=== PATIENT | male | born 1960 | race Caucasian/White ===

== ENCOUNTER 2016-08-11 16:14 | Emergency (ER) | payer MEDICAID ==
[~2016-08-11] VITALS: Ht 180.3 cm; Wt 70.3 kg
[2016-08-11 16:25] VITALS: BP 145/91
== END 2016-08-12 03:39 | disposition left against medical advice (07) ==
LOC: ER 16:18
DX: L02.11 Cutaneous abscess of neck (principal); Z53.21 Procedure and treatment not carried out due to patient leaving prior to being seen by health care provider

== ENCOUNTER 2016-08-14 19:22 | Inpatient (IN) | payer MEDICAID ==
[~2016-08-14] VITALS: Ht 180.3 cm; Wt 79.0 kg
[2016-08-14 21:25] LABS: Basophils # (auto) 0 uL; Basophils % (auto) 0.5 % (0.0-2.0); Eosinophils # (auto) 0.1 uL; Eosinophils % (auto) 1.3 % (0.0-7.0); Hematocrit 42.2 % (41.0-53.0); Hemoglobin 14.1 g/dL (13.5-17.5); Lymphocytes # (auto) 1.7 uL; Lymphocytes % (auto) 16.9 % (10.0-50.0); Mean Corpuscular Hemoglobin 30.2 pg (28.0-32.0); Mean Corpuscular Hgb Conc. 33.5 g/dL (32.0-36.0); Mean Corpuscular Volume 90.2 fL (80.0-100.0); Monocytes # (auto) 0.9 uL; Monocytes % (auto) 8.5 % (0.0-12.0); Neutrophils # (auto) 7.5 uL; Neutrophils % (auto) 72.8 % (37.0-80.0); Platelet Count (auto) 291 10^3/uL (140-450); Red Cell Distribution Width 13.5 % (11.6-16.0); White Blood Cell 10.3 10^3/uL (4.4-10.8)
[2016-08-14 21:51] LABS: BUN/Creatinine Ratio 14.1; Bilirubin, Total 0.3 mg/dL (0.2-1.0); Calcium 8.5 mg/dL (8.5-10.1); Potassium 3.8 mmol/L (3.5-5.1); Total Protein 7.3 g/dL (6.4-8.2)
[2016-08-15] MEDS ORDERED: SODIUM CHLORIDE 0.9% 1,000 ML IV ONE (06:29)
[2016-08-15] MEDS ORDERED: SULFAMETH-TRIMETH 80/16MG-ML 15 ML in D5W 5% 500 ML IV ONE (06:30)
[2016-08-15] MEDS ORDERED: IOHEXOL 300 MG/ML 100ML BOTTLE IJ ONE (08:01)
[2016-08-15] MEDS ORDERED: LACTULOSE 20Gm/30ML SOLN PO PRN (08:45)
[2016-08-15] MEDS ORDERED: LORazepam 0.5 MG TAB PO PRN (08:45)
[2016-08-15] MEDS ORDERED: TEMAZEPAM 15 MG CAP PO PRN (08:45)
[2016-08-15] MEDS ORDERED: PROMETHAZINE HCL 25 MG/ML 1ML IV PRN (08:45)
[2016-08-15] MEDS ORDERED: THIAMINE HCL 100 MG/ML 2ML VIAL IV ONE (08:45)
[2016-08-15] MEDS ORDERED: ACETAMINOPHEN 500 MG TAB PO PRN (08:45)
[2016-08-15] MEDS ORDERED: VANCOMYCIN 1GM/250ML D5W 250 ML IV ONE (08:45)
[2016-08-15] MEDS ORDERED: PIPERACILLIN-TAZOB 3.375GM 100 ML IV ONE (08:45)
[2016-08-15] MEDS ORDERED: VANCOMYCIN PER PHARMACY 0 MG IV SCH (08:45)
[2016-08-15 10:04] LABS: Urine Bilirubin Negative (Negative); Urine Blood Negative /uL (Negative); Urine Ca Oxalate Crystal FEW (None Seen); Urine Color Yellow (Yellow); Urine Glucose Normal (Normal); Urine Ketone Negative (Negative); Urine Mucus FEW (None Seen); Urine Nitrite Negative (Negative); Urine RBC 1 /hpf (0 - 3); Urine Squamous Epithelial Cell FEW /hpf (<5); Urine pH 5.5 (5.0-8.0)
[2016-08-15] MEDS: MORPHINE SULF INJ 2 MG/ML SYRINGE 1ML IV PRN ×2 (10:47→19:52)
[2016-08-15] MEDS: ENOXAPARIN SOD 40 MG/0.4 ML SYRINGE SC SCH (11:04)
[2016-08-15] MEDS: SODIUM CHLORIDE 0.9% 1,000 ML IV SCH ×2 (11:11→18:15)
[2016-08-15] MEDS: chlordiazePOXIDE HCL 5 MG CAP PO SCH ×3 (12:38→23:20)
[2016-08-15 12:50] VITALS: BP 117/78
[2016-08-15 12:52] VITALS: BP 130/90
[2016-08-15] MEDS: THIAMINE HCL 100 MG/ML 2ML VIAL IV SCH (13:31)
[2016-08-15 14:33] LABS: INR 0.97 (0.9-1.15); Partial Thromboplastin Time 31.2 sec (22.64-33.71); Prothrombin Time 10.6 sec (9.37-12.3)
[2016-08-15] MEDS: PIPERACILLIN-TAZOB 3.375GM 100 ML IV SCH ×3 (14:39→23:21)
[2016-08-15 16:51] VITALS: BP 125/85
[2016-08-15 20:00] VITALS: BP 131/83
[2016-08-15 21:43] VITALS: BP 131/83
[2016-08-15] MEDS: VANCOMYCIN 1GM/250ML D5W 250 ML IV SCH (22:05)
[2016-08-16 05:00] VITALS: BP 122/75
[2016-08-16 06:10] LABS: Basophils # (auto) 0 uL; Basophils % (auto) 0.7 % (0.0-2.0); Eosinophils # (auto) 0.2 uL; Eosinophils % (auto) 2.4 % (0.0-7.0); Hematocrit 38.7 % (41.0-53.0); Lymphocytes # (auto) 1.4 uL; Lymphocytes % (auto) 19.2 % (10.0-50.0); Mean Corpuscular Hgb Conc. 33.6 g/dL (32.0-36.0); Mean Corpuscular Volume 89.3 fL (80.0-100.0); Mean Platelet Volume 8.9 fL (7.4-10.4); Monocytes # (auto) 0.8 uL; Monocytes % (auto) 11.7 % (0.0-12.0); Neutrophils # (auto) 4.7 uL; Platelet Count (auto) 287 10^3/uL (140-450); Red Cell Distribution Width 13.7 % (11.6-16.0); White Blood Cell 7.1 10^3/uL (4.4-10.8)
[2016-08-16] MEDS: PIPERACILLIN-TAZOB 3.375GM 100 ML IV SCH ×2 (06:19→12:15)
[2016-08-16] MEDS: chlordiazePOXIDE HCL 5 MG CAP PO SCH ×3 (06:20→17:08)
[2016-08-16] MEDS: SODIUM CHLORIDE 0.9% 1,000 ML IV SCH ×3 (06:20→15:30)
[2016-08-16 06:43] LABS: Albumin 2.6 g/dL (3.4-5.0); BUN/Creatinine Ratio 14.9; Bilirubin, Total 0.3 mg/dL (0.2-1.0); Calcium 8.4 mg/dL (8.5-10.1); Total Protein 6.6 g/dL (6.4-8.2)
[2016-08-16 07:00] VITALS: BP 104/58
[2016-08-16] MEDS: MORPHINE SULF INJ 2 MG/ML SYRINGE 1ML IV PRN (07:09)
[2016-08-16] MEDS: ENOXAPARIN SOD 40 MG/0.4 ML SYRINGE SC SCH (09:02)
[2016-08-16] MEDS: THIAMINE HCL 100 MG/ML 2ML VIAL IV SCH (09:02)
[2016-08-16] MEDS: VANCOMYCIN 1GM/250ML D5W 250 ML IV SCH ×3 (10:02→22:46)
[2016-08-16 13:00] VITALS: BP 132/76
[2016-08-16] MEDS: cefTRIAXone 1GM/50ML D5W 50 ML IV SCH (15:29)
[2016-08-16 17:07] VITALS: BP 148/75
[2016-08-16 22:00] VITALS: BP 142/89
[2016-08-17] MEDS: chlordiazePOXIDE HCL 5 MG CAP PO SCH ×4 (01:33→17:34)
[2016-08-17] MEDS: MORPHINE SULF INJ 2 MG/ML SYRINGE 1ML IV PRN (02:31)
[2016-08-17 05:00] VITALS: BP 120/71
[2016-08-17 09:00] VITALS: BP 152/92
[2016-08-17] MEDS: THIAMINE HCL 100 MG/ML 2ML VIAL IV SCH (09:59)
[2016-08-17] MEDS: cefTRIAXone 1GM/50ML D5W 50 ML IV SCH (10:06)
[2016-08-17] MEDS: SODIUM CHLORIDE 0.9% 1,000 ML IV SCH ×2 (10:40→22:06)
[2016-08-17] MEDS: VANCOMYCIN 1GM/250ML D5W 250 ML IV SCH ×2 (10:40→21:10)
[2016-08-17 13:00] VITALS: BP 141/85
[2016-08-17] MEDS: MULTIPLE VITAMIN TAB PO SCH (16:15)
[2016-08-17 17:00] VITALS: BP 140/80
[2016-08-17] MEDS: PRO-STAT 64 30ML PO SCH (17:33)
[2016-08-17] MEDS: ASCORBIC ACID 500 MG TAB PO SCH (21:10)
[2016-08-17] MEDS: LINEZOLID 600MG TABLET PO SCH (21:10)
[2016-08-17 22:00] VITALS: BP 133/87
[2016-08-18] VITALS (7 sets, daily range): BP systolic 112–131; BP diastolic 67–85
[2016-08-18] MEDS: chlordiazePOXIDE HCL 5 MG CAP PO SCH ×5 (05:31→23:39)
[2016-08-18 06:35] LABS: Basophils # (auto) 0 uL; Basophils % (auto) 0.6 % (0.0-2.0); Eosinophils # (auto) 0.2 uL; Hematocrit 36.3 % (41.0-53.0); Hemoglobin 12.4 g/dL (13.5-17.5); Lymphocytes # (auto) 1.6 uL; Lymphocytes % (auto) 23.6 % (10.0-50.0); Mean Corpuscular Hemoglobin 30.2 pg (28.0-32.0); Mean Corpuscular Hgb Conc. 34.2 g/dL (32.0-36.0); Mean Corpuscular Volume 88.5 fL (80.0-100.0); Mean Platelet Volume 9.3 fL (7.4-10.4); Monocytes # (auto) 0.7 uL; Monocytes % (auto) 10.4 % (0.0-12.0); Neutrophils # (auto) 4.2 uL; Neutrophils % (auto) 62.4 % (37.0-80.0); Platelet Count (auto) 311 10^3/uL (140-450); Red Cell Distribution Width 13.6 % (11.6-16.0); White Blood Cell 6.8 10^3/uL (4.4-10.8)
[2016-08-18 06:53] LABS: BUN/Creatinine Ratio 22.2; Potassium 4.3 mmol/L (3.5-5.1)
[2016-08-18] MEDS: SODIUM CHLORIDE 0.9% 1,000 ML IV SCH ×2 (07:33→16:55)
[2016-08-18] MEDS: PRO-STAT 64 30ML PO SCH ×2 (08:00→17:43)
[2016-08-18] MEDS: ASCORBIC ACID 500 MG TAB PO SCH ×2 (09:05→22:07)
[2016-08-18] MEDS: THIAMINE HCL 100 MG/ML 2ML VIAL IV SCH (09:05)
[2016-08-18] MEDS: VANCOMYCIN 1GM/250ML D5W 250 ML IV SCH (09:05)
[2016-08-18] MEDS: cefTRIAXone 1GM/50ML D5W 50 ML IV SCH (09:05)
[2016-08-18] MEDS: MULTIPLE VITAMIN TAB PO SCH (09:05)
[2016-08-18] MEDS: LINEZOLID 600MG TABLET PO SCH ×2 (09:06→22:07)
[2016-08-18] MEDS: MORPHINE SULF INJ 2 MG/ML SYRINGE 1ML IV PRN (09:09)
[2016-08-19] MEDS: SODIUM CHLORIDE 0.9% 1,000 ML IV SCH ×3 (02:40→22:40)
[2016-08-19 05:30] VITALS: BP 136/84
[2016-08-19] MEDS: chlordiazePOXIDE HCL 5 MG CAP PO SCH ×4 (05:36→23:49)
[2016-08-19 06:34] LABS: Potassium 4.4 mmol/L (3.5-5.1)
[2016-08-19 06:42] LABS: Albumin 2.7 g/dL (3.4-5.0); BUN/Creatinine Ratio 20.7; Calcium 8.3 mg/dL (8.5-10.1)
[2016-08-19 06:45] LABS: Bilirubin, Total 0.1 mg/dL (0.2-1.0); Total Protein 6.1 g/dL (6.4-8.2)
[2016-08-19] MEDS: PRO-STAT 64 30ML PO SCH ×2 (08:00→18:18)
[2016-08-19] MEDS ORDERED: PROPOFOL 10 MG/ML 20 ML IV ONE (08:31)
[2016-08-19] MEDS ORDERED: SODIUM CHLORIDE LOCK 20 ML ONE (08:31)
[2016-08-19] MEDS ORDERED: MIDAZOLAM HCL 1MG/1ML-2 ML VIAL ONE (08:31)
[2016-08-19] MEDS ORDERED: fentaNYL CITRATE 100 MCG/2 ML VL ONE ×2 (08:31→09:04)
[2016-08-19] MEDS ORDERED: ceFAZolin 1GM/50ML D5W 50 ML IV ONE (08:38)
[2016-08-19] MEDS ORDERED: ROCURONIUM 10MG/ML 10ML VIAL IV ONE (08:46)
[2016-08-19 08:51] VITALS: BP 143/87
[2016-08-19] MEDS ORDERED: SUCCINYLCHOLINE CHLORIDE 20 MG/ML 10ML VIAL IV ONE (08:55)
[2016-08-19] MEDS ORDERED: METOCLOPRAMIDE HCL 5MG/ml INJ 2ml VIAL IV ONE (09:45)
[2016-08-19] MEDS ORDERED: KETOROLAC TROMETH 30 MG/ML 1ML VIAL IV ONE (09:45)
[2016-08-19] MEDS ORDERED: HYDROmorphone HCL 2 MG/ML VL IV PRN (09:45)
[2016-08-19] MEDS: MULTIPLE VITAMIN TAB PO SCH (10:00)
[2016-08-19] MEDS: LINEZOLID 600MG TABLET PO SCH ×2 (10:00→22:57)
[2016-08-19] MEDS: THIAMINE HCL 100 MG/ML 2ML VIAL IV SCH (10:00)
[2016-08-19] MEDS: ASCORBIC ACID 500 MG TAB PO SCH ×2 (10:00→22:57)
[2016-08-19 12:40] VITALS: BP 156/91
[2016-08-19] MEDS: HYDROcodone-ACET 5/325MG TAB PO PRN (13:50)
[2016-08-19 16:34] VITALS: BP 145/81
[2016-08-19 20:00] VITALS: BP 146/81
[2016-08-19 21:31] VITALS: BP 146/81
[2016-08-20 04:34] VITALS: BP 101/56
[2016-08-20] MEDS: chlordiazePOXIDE HCL 5 MG CAP PO SCH ×2 (05:58→13:25)
[2016-08-20 07:58] LABS: Hematocrit 39.5 % (41.0-53.0); Hemoglobin 13.4 g/dL (13.5-17.5); Mean Corpuscular Hemoglobin 30.6 pg (28.0-32.0); Mean Corpuscular Hgb Conc. 33.9 g/dL (32.0-36.0); Mean Corpuscular Volume 90.4 fL (80.0-100.0); Platelet Count (auto) 306 10^3/uL (140-450); Red Cell Distribution Width 13.7 % (11.6-16.0); SUSPECT VIEW TRANSMISSION; White Blood Cell 24.7 10^3/uL (4.4-10.8)
[2016-08-20 08:00] LABS: Metamyelocytes % 0; Myelocytes % 0; Promyelocytes % 0; Reactive Lymphocytes 0
[2016-08-20] MEDS: PRO-STAT 64 30ML PO SCH (08:00)
[2016-08-20 08:10] LABS: Albumin 2.9 g/dL (3.4-5.0); Bilirubin, Total 0.2 mg/dL (0.2-1.0); Calcium 8.7 mg/dL (8.5-10.1); Potassium 4.3 mmol/L (3.5-5.1); Total Protein 6.7 g/dL (6.4-8.2)
[2016-08-20 08:24] LABS: Platelet Estimate Adequate; RBC Morphology Normal
[2016-08-20] MEDS: SODIUM CHLORIDE 0.9% 1,000 ML IV SCH (08:40)
[2016-08-20 09:00] VITALS: BP 128/73
[2016-08-20] MEDS: THIAMINE HCL 100 MG/ML 2ML VIAL IV SCH (10:00)
[2016-08-20 10:14] LABS: Hematocrit 38.2 % (41.0-53.0); Hemoglobin 12.8 g/dL (13.5-17.5); Mean Corpuscular Hemoglobin 30.1 pg (28.0-32.0); Mean Corpuscular Hgb Conc. 33.5 g/dL (32.0-36.0); Mean Corpuscular Volume 89.9 fL (80.0-100.0); Platelet Count (auto) 327 10^3/uL (140-450); Red Cell Distribution Width 13.7 % (11.6-16.0); SUSPECT VIEW TRANSMISSION; White Blood Cell 23.1 10^3/uL (4.4-10.8)
[2016-08-20 10:17] LABS: Metamyelocytes % 0; Myelocytes % 0; Promyelocytes % 0; Reactive Lymphocytes 0
[2016-08-20] MEDS: LINEZOLID 600MG TABLET PO SCH (10:23)
[2016-08-20] MEDS: MULTIPLE VITAMIN TAB PO SCH (10:24)
[2016-08-20] MEDS: ASCORBIC ACID 500 MG TAB PO SCH (10:24)
[2016-08-20] MEDS: HYDROcodone-ACET 5/325MG TAB PO PRN (10:24)
[2016-08-20 10:37] LABS: Platelet Estimate Adequate; RBC Morphology Normal
[2016-08-20 13:00] VITALS: BP 135/74
[2016-08-20 15:47] VITALS: BP 135/74
== END 2016-08-20 17:40 | disposition home or self-care (01) | DRG 383 ==
LOC: ER 19:32 → OVERFLOW 19:33 → WEST WING 08-15 08:58
PROVIDERS: ADMIT Internal Medicine; ATTEND Internal Medicine
PROC: 3E10X8Z Irrigation of Skin and Mucous Membranes using Irrigating Substance (ICD-10-PCS; 2016-08-19)
PROC: 0HB4XZZ Excision of Neck Skin, External Approach (ICD-10-PCS; principal; 2016-08-19 08:55)
DX: L02.11 Cutaneous abscess of neck (principal); E88.09 Other disorders of plasma-protein metabolism, not elsewhere classified; F11.10 Opioid abuse, uncomplicated; F17.210 Nicotine dependence, cigarettes, uncomplicated; Z59.0 Homelessness; Z82.0 Family history of epilepsy and other diseases of the nervous system; Z72.89 Other problems related to lifestyle; B95.62 Methicillin resistant Staphylococcus aureus infection as the cause of diseases classified elsewhere
CPT/HCPCS: 36415; 70490; 71010; 72125; 76604; 80048; 80053; 80202; 81001; 85007; 85025; 85027; 85610; 85652; 85730; 87040; 87070; 87075; 87077; 87186; 87205; J0330; J0690; J0696; J2250; J2543; J2704; J3490

== ENCOUNTER 2023-04-13 17:58 | Emergency (ER) | payer MEDICAID ==
[~2023-04-13] VITALS: Ht 180.3 cm; Wt 89.1 kg
[2023-04-13 18:05] VITALS: BP 124/85; RESP 18; O2SAT 97
[2023-04-13 18:07] VITALS: PULSE 87
== END 2023-04-13 20:53 | disposition home or self-care (01) ==
LOC: ER 17:58
DX: M21.331 Wrist drop, right wrist (principal); I87.8 Other specified disorders of veins; K21.9 Gastro-esophageal reflux disease without esophagitis; F17.210 Nicotine dependence, cigarettes, uncomplicated
CPT/HCPCS: 29125; 93005